=== PATIENT | male | born 1980 | race Caucasian/White ===

== ENCOUNTER 2022-05-05 01:47 | Inpatient (IN) | payer MEDICAID ==
[~2022-05-05] VITALS: Ht 177.8 cm; Wt 107.5 kg
[2022-05-05] VITALS (7 sets, daily range): BP systolic 0–118; BP diastolic 0–66
--- NOTE | 2022-05-05 01:47 | NUR ---
pt intubated 8.0 26 at the teeth with color change.
--- NOTE | 2022-05-05 01:47 | NUR ---
[place] pd at bedside
--- NOTE | 2022-05-05 01:47 | NUR ---
42 yo m biba from home with c/c of full arrest. per medics pd was on site attempting to arrest pt d/t warrant. pt was tazed 4-5 times and fought with pd. pt became unconcious, weak thready pulse, cpr was started. pt arrived with leoncio on chest. per medics no hx, rx and allergies
--- NOTE | 2022-05-05 01:47 | NUR ---
0145- PT BIBA ALS CPR IN PROGRESS. TAKEN TO BED 1. DR. ONEIL AND RT AT BEDSIDE. [place] AT BEDSIDE
--- NOTE | 2022-05-05 02:16 | NUR ---
X-Ray at bedside.
--- NOTE | 2022-05-05 02:29 | NUR ---
PT TAKEN TO CT
[2022-05-05 02:39] LABS: HEMATOCRIT 35.8 % (36-52); HEMOGLOBIN 11.6 g/dL (12.0-18.0); MEAN CORPUSCULAR HEMOGLOBIN 29 pg (27-31); MEAN CORPUSCULAR HGB CONC 32 g/dL (33-37); PLATELET COUNT (AUTO) 168 K/uL (140-450); RED BLOOD CELL COUNT(AUTO) 4.02 MIL/uL (4.20-6.10); RED CELL DISTRIBUTION WIDTH 13.8 % (11.6-13.7); WHITE BLOOD COUNT (AUTO) 7.4 K/uL (4.8-10.8)
[2022-05-05 02:43] LABS: PROTHROMBIN TIME 13.5 secs (10.8-13.4)
[2022-05-05 02:57] LABS: LYMPHOCYTES % (MANUAL) 69 % (20-46)
[2022-05-05 02:58] LABS: MONOCYTES % (MANUAL) 3 % (5-12)
[2022-05-05 03:09] LABS: ALBUMIN 3.2 g/dL (3.4-5.0); ANION GAP 30.3 (8-16); ASPARTATE AMINOTRANSFERASE 314 U/L (15-37); CHLORIDE 95 mmol/L (98-107); CREATININE 2.3 mg/dL (0.6-1.3); GFR ARICAN-AMERICAN 40 mL/min (>90); POTASSIUM 4.3 mmol/L (3.5-5.1); SODIUM SERUM 135 mmol/L (136-145); TOTAL BILIRUBIN 0.4 mg/dL (0.0-1.0); UREA NITROGEN, BLOOD 18 mg/dL (7-18)
[2022-05-05 03:14] LABS: GLUCOSE 417 mg/dL (74-106)
[2022-05-05] MEDS ORDERED: DOPamine 400 MG/D5W PREMIX 250 ML IV ONE ×4 (03:15→22:02)
[2022-05-05] MEDS ORDERED: NACL 0.9% 1,000 ML IV ONE ×2 (03:15→04:05)
[2022-05-05] MEDS ORDERED: NOREPINEPHRINE 4 MG in DEXTROSE 5% 250 ML IV ONE (03:15)
[2022-05-05 03:37] LABS: SALICYLATE 2.9 mg/dL (2.8-20.0)
[2022-05-05 03:43] LABS: ACETAMINOPHEN < 0.5 ug/ml (10-30)
--- NOTE | 2022-05-05 04:03 | NUR ---
BELONGINGS LIST DONE.
[2022-05-05] MEDS: NACL 0.9% 1,000 ML IV SCH ×3 (04:40→21:56)
--- NOTE | 2022-05-05 05:24 | NUR ---
[place] pd continues at bedside.
--- NOTE | 2022-05-05 05:25 | NUR ---
pt has been cleaned up, repositioned and all covers remain off.
[2022-05-05] MEDS ORDERED: NOREPINEPHRINE 4 MG/4 ML VIAL IV ONE ×5 (05:51→20:49)
[2022-05-05] MEDS ORDERED: PIPERACILLIN/TAZOBACTAM 3.375 GM in DEXTROSE 5% 50 ML IV SCH (06:00)
[2022-05-05] MEDS ORDERED: PIPERACILLIN/TAZOBACTAM 3.375 GM VIAL IV ONE ×2 (06:08→13:08)
--- NOTE | 2022-05-05 07:24 | NUR ---
REPORT GIVEN TO JABARI ANGUIANO. TRANSFER OF CARE AT THIS TIME.
--- NOTE | 2022-05-05 07:47 | NUR ---
RECEIVED ON A Stop Being WatchedSCAPE R860 VENTILATOR PLUGGED INTO RED OUTLET TOLERATING WELL WITHOUT ADVERSE REACTIONS NOTED TO AN ENDOTRACHEAL TUBE #8.0 SECURED AT 26cm TEETH/GUM LINE WITH AN ANCHOR FAST CUFF PRESSURE CHECKED NOTED AMBU BAG AT BEDSIDE RESTING COMFORTABLY NO DISTRESS NOTED GOOD CHEST RISE AND AERATION THROUGHOUT BILATERAL LUNG PANTOJA AIRWAY PATENT
--- NOTE | 2022-05-05 08:11 | NUR ---
Patient intubated on a vent., perrl, on hypothermia protocol, rectal T 95.7, ice pack applied at genitals and axillary area, ng tube in place, mitchell cath in place 350 cc urine, on levophed drip 14 mcg/min, dopamine at 10 mcg/kg/min, on ns at 125 cc/hour, on central line, no infiltration signs, ST on, 116, c collar in place.
--- NOTE | 2022-05-05 10:30 | NUR ---
no changes from previous assessment, hr 102, o2 sat 99% same vent settings, on levophed, dopamine same rate, sr up times 2
--- NOTE | 2022-05-05 11:45 | NUR ---
STABLE GOOD CHEST RISE NO DISTRESS NOTED AIRWAY PATENT
[2022-05-05] MEDS: PIPERACILLIN/TAZOBACTAM 3.375 GM in DEXTROSE 5% 50 ML IV SCH ×2 (13:07→21:57)
[2022-05-05 13:47] LABS: BARBITURATE, URINE NEGATIVE ng/ml (NEG <=200); BENZODIAZEPINE, URINE NEGATIVE ng/mL (NEG <=200); CANNABINOID, URINE NEGATIVE ng/mL (NEG <=50); COCAINE, URINE NEGATIVE ng/mL (NEG <=300); OPIATE, URINE NEGATIVE ng/mL (NEG <=2000); PHENCYCLIDINE SCREEN,URINE NEGATIVE ng/mL (NEG <=25)
--- NOTE | 2022-05-05 13:49 | NUR ---
no ac changes, on vent, same setting, no need for sedation, perrl, sr on cm, hr 97/min, o2 sat 100% 45% fio2, sr up times 2, pd at bs
--- NOTE | 2022-05-05 14:00 | NUR ---
NO EVIDENCE OF RESPIRATORY DISTRESS NOTED GOOD CHEST RISE AIRWAY PATENT
--- NOTE | 2022-05-05 19:29 | NUR ---
report to Jose Roberto restaurant shift supervisor nurse
--- NOTE | 2022-05-05 19:30 | NUR ---
received pt from day shift RN. pt currently a/o x 0 gcs 3. currently intubated >ETT 8 26cm to lip > OGT in place > R fem CVC triple lumen in place > 16fr mitchell in place vent settings as follows; PRVC 500 vt 22 r 3 PEEP 45%
--- NOTE | 2022-05-05 20:00 | NUR ---
remains on TTM at this time.
--- NOTE | 2022-05-05 20:38 | NUR ---
PATIENTS SATS DROPPED TO 85% INCREASED FIO2 TO 100%. WILL TITRATE NEEDED
--- NOTE | 2022-05-05 21:00 | NUR ---
called Dr. Kennedy to request for BP control pressors. TORB of vasopressin and thelma-synephrine PRN titration
[2022-05-05] MEDS ORDERED: PHENYLEPHRINE 40 MG in NACL 0.9% 250 ML IV PRN (21:55)
[2022-05-05] MEDS: NOREPINEPHRINE 8 MG in DEXTROSE 5% 250 ML IV PRN (22:17)
[2022-05-05] MEDS: DOPamine 400 MG/D5W PREMIX 250 ML IV PRN (22:18)
[2022-05-05] MEDS ORDERED: VASOPRESSIN 20 UNITS/ML VIAL ONE (23:16)
[2022-05-05] MEDS: VASOPRESSIN 20 UNITS in NACL 0.9% 250 ML IV PRN (23:26)
[2022-05-06] VITALS (16 sets, daily range): BP systolic 97–141; BP diastolic 65–91
[2022-05-06] MEDS: NOREPINEPHRINE 8 MG in DEXTROSE 5% 250 ML IV PRN ×3 (00:44→21:49)
--- NOTE | 2022-05-06 03:00 | NUR ---
pt now placed on cooling blanket for TTM.
[2022-05-06] MEDS ORDERED: NOREPINEPHRINE 4 MG/4 ML VIAL IV ONE ×2 (04:06→21:41)
[2022-05-06] MEDS: NACL 0.9% 1,000 ML IV SCH ×3 (04:44→20:26)
[2022-05-06 05:21] LABS: BASOPHILS % (AUTO) 0.3 % (0.0-2.0); EOSINOPHILS # (AUTO) 0.1 K/uL (0-0.4); EOSINOPHILS % (AUTO) 3.5 % (0.0-4.0); HEMATOCRIT 41.8 % (36-52); HEMOGLOBIN 13.9 g/dL (12.0-18.0); LYMPHOCYTES # (AUTO) 0.6 K/uL (2.0-11.5); LYMPHOCYTES % (AUTO) 24.2 % (20.5-51.1); MEAN CORPUSCULAR HEMOGLOBIN 29 pg (27-31); MEAN CORPUSCULAR HGB CONC 33 g/dL (33-37); MEAN CORPUSCULAR VOLUME 85.8 fL (80-94); MONOCYTES # (AUTO) 0.1 K/uL (0.8-1.0); MONOCYTES % (AUTO) 4.7 % (1.7-9.3); NEUTROPHILS # (AUTO) 1.8 K/uL (1.8-7.7); NEUTROPHILS % (AUTO) 67.3 % (42.2-75.2); PLATELET COUNT (AUTO) 153 K/uL (140-450); RED BLOOD CELL COUNT(AUTO) 4.87 MIL/uL (4.20-6.10); RED CELL DISTRIBUTION WIDTH 14.7 % (11.6-13.7); WHITE BLOOD COUNT (AUTO) 2.6 K/uL (4.8-10.8)
[2022-05-06] MEDS: PIPERACILLIN/TAZOBACTAM 3.375 GM in DEXTROSE 5% 50 ML IV SCH ×3 (05:49→20:17)
--- NOTE | 2022-05-06 05:52 | NUR ---
NAD at this time. pt remains ventilated at this time with no sedation. no neuro response at this time.
[2022-05-06] MEDS: DOPamine 400 MG/D5W PREMIX 250 ML IV PRN ×4 (06:21→23:06)
[2022-05-06 06:23] LABS: ANION GAP 17.6 (8-16); CARBON DIOXIDE 19.1 mmol/L (21-32); CREATININE 3.1 mg/dL (0.6-1.3); POTASSIUM 3.7 mmol/L (3.5-5.1)
--- NOTE | 2022-05-06 06:29 | NUR ---
remains on TTM at this time. levo remains to be titrated down.
--- NOTE | 2022-05-06 07:26 | NUR ---
REPORT RECEIVED FROM JESI BARBOZA, TRANSFER OF CARE AT THIS TIME. RECEIVED PT IN BED, NO NEURO RESPONSE NOTED
--- NOTE | 2022-05-06 08:40 | NUR ---
Patient will be admitted to care of DR BARRETT. Admited to ICU. Will go to room ICU3. Belongings list completed. Report to KOBE BARBOZA.
--- NOTE | 2022-05-06 08:40 | NUR ---
Alireza smyth in [facility] - 05/06/22 at 0906 by ELLIS Pt report given to KOBE BARBOZA. Transfer of care at this time.
--- NOTE | 2022-05-06 09:05 | NUR ---
PT TRANSFERRED FROM ER TO ICU VIA [place], RECEIVED BEDSIDE REPORT FROM GUILLERMO. ON MONITOR. LETHARGIC. ETT TO VENT, AC VC FIO2 45%, VT 500, RATE 22, PEEP 5. NPO, OGT IN PLACE AND CLAMPED. RT FEMORAL, RUNNING DOPAMINE @ 10 MCG/KG/MIN, LEVOPHED @3 MCG/MIN, VASOPRESSIN @ 0.03 IU/MIN, NS @ 125MLS/HR. PERIPHERAL IV TO LT WRIST 20G, SALINE LOCKED. HILLMAN IN PLACE, SKIN INTACT. TEMP WILL BE MONITORED. BED TO LOWEST POSITION, HOB ELEVATED, CALL LIGHT WITHIN REACH, WILL CONTINUE TO MONITOR.
[2022-05-06] MEDS: VASOPRESSIN 20 UNITS in NACL 0.9% 250 ML IV PRN (10:13)
--- NOTE | 2022-05-06 10:19 | NUR ---
PATIENT HAS BEEN SCREENED AND CATEGORIZED HIGH NUTRITION RISK. PATIENT WILL BE SEEN WITHIN 1-2 DAYS OF ADMISSION. REVIEWED BY ANA HUGO RD
--- NOTE | 2022-05-06 10:37 | NUR ---
DR FRANCESCA LAINEZ AT BEDSIDE. UPDATED PT INFORMATION. ORDERED ABGS AND CONTACT [facility]. Addendum: 05/06/22 at 1809 by Yonas Graff RN PER LUIS MANUEL, NEED OFFICIAL EEG RESULT AND TWO PHYSICIAN BEFORE CONTACTING [facility]. DR LYON WILL READ THE EEG ON 05/07/22.
--- NOTE | 2022-05-06 11:36 | NUR ---
DR ARNOLD LAINEZ AT BEDSIDE. UPDATED PT INFORMATION
--- NOTE | 2022-05-06 11:40 | NUR ---
CALLED DR. RICHELLE ARIAS AT [facility] AT TO REVIEW ABG RESULTS; DENTON/EXCHANGE TO PAGE FORMAMBER JACK; PATIENT INFORMATION AND CALL BACK NUMBER GIVEN
--- NOTE | 2022-05-06 11:42 | NUR ---
CALL BACK FROM GAURAV MCKEON; REVIEWED ABG RESULTS; STATES "THANKS OK METABOLIC ISSUE" NO FURTHER RESPIRATORY ORDERS GIVEN
--- NOTE | 2022-05-06 12:07 | NUR ---
PT MOM/DEBBIE ENRIQUEZ, CELL# AT BEDSIDE. UPDATED PT INFORMATION.
--- NOTE | 2022-05-06 12:50 | NUR ---
BEDSIDE EEG STARTED.
--- NOTE | 2022-05-06 13:09 | NUR ---
DR LYON ROUNDING TORIN BEDSIDE. UPDATED PT INFORMATION. ALL QUESTION ANSWERED.
--- NOTE | 2022-05-06 14:16 | NUR ---
PT. WITH LOW GHAZAL SCALE AT MODERATE TO HIGH RISK, CONTINUE TO FOLLOW PRESSURE INJURY PREVENTION INTERVENTIONS. [place] [employer] AT BED SIDE, EEG AT BEDSIDE. -POSITIONING: TURN AND REPOSITION PATIENT Q 2H OR SOONER USE PILLOWS TO KEEP BONY PROMINENCES FROM DIRECT CONTACT WITH SURFACES USE REPOSITIONING WEDGES TO PROVIDE 30-DEGREE ANGLE FOR SIDE LYING POSITIONS OFFLOADING OR FOAM DRESSING TO ALL TUBING TO PREVENT MEDICAL DEVICES RELATED PRESSURE INJURY -RE-EVALUATING AND MANAGING INCONTINENCE MONITOR SKIN CONDITION DURING POSITION CHANGE DO NOT MASSAGE REDNESS, BONY PROMINENCES FREQUENT DIONY-CARE AND PROVIDE BARRIER CREAMS PRN IF SOILING MOISTURE CONTROL BY OFFER BED MOY/URINAL /ABSORBENT PAD TO WICK AND HOLD MOISTURE KEEP SKIN DRY AND PROTECT FROM FRICTION -MANAGE FRICTION/SHEAR/MOBILITY KEEP HOB AT THE LOWEST LEVEL OF ELEVATION NO MORE THAN 30 DEGREE UNLESS OTHERWISE CONTRAINDICATED USE LIFT SHEET OR TRANSFER DEVICE TO MOVE PATIENT AND PREVENT LATERAL SHEER. PROTECT HEELS, ELBOWS BONY PROMINENCES WITH SKIN BERRIES OR FOAM DRESSING IF EXPOSED TO FRICTION OFFLOAD BILATERAL HEELS BY PLACING PILLOWS UNDER CALVES AT ALL TIMES, UNLESS OTHERWISE CONTRAINDICATED -PRESSURE REDISTRIBUTION SURFACE THERAPY MARTY ISOFLEX MATTRESS -NUTRITION: PLEASE FOLLOW RD RECOMMENDATIONS AND OFFER NUTRITION SUPPLEMENTS IF ORDERED. PLEASE CONTACT WOUND CARE NURSE FOR ANY QUESTION AND CHANGE OF WOUND CONDITION.
[2022-05-06 14:54] LABS: APPEARANCE,URINE CLEAR (CLEAR); BILIRUBIN,URINE NEGATIVE (NEGATIVE); BLOOD, URINE 3+ (NEGATIVE); COLOR,URINE YELLOW (YELLOW); LEUKOCYTE ESTERASE ,URINE NEGATIVE (NEGATIVE); NITRITE, URINE NEGATIVE (NEGATIVE); PH,URINE 5.5 (5.0-9.0); UGLUCOSE NEGATIVE (NEGATIVE)
[2022-05-06 15:22] LABS: BARBITURATE, URINE NEGATIVE ng/ml (NEG <=200); BENZODIAZEPINE, URINE NEGATIVE ng/mL (NEG <=200); CANNABINOID, URINE NEGATIVE ng/mL (NEG <=50); COCAINE, URINE NEGATIVE ng/mL (NEG <=300); OPIATE, URINE NEGATIVE ng/mL (NEG <=2000); PHENCYCLIDINE SCREEN,URINE NEGATIVE ng/mL (NEG <=25)
--- NOTE | 2022-05-06 16:29 | NUR ---
05/06/22 RD INITIAL ASSESSMENT COMPLETED PLEASE REFER TO NUTRITION ASSESSMENT UNDER CARE ACTIVITY FOR ESTIMATED NUTRITIONAL NEEDS. 1. CONTINUE NPO PER MD 2. WHEN/IF MEDICALLY APPROPRIATE TO START TF, RECOMMEND VITAL AF 1.2 AT GOAL RATE 65 ML/HR, FWF 150 ML Q6H TOLERATED - PROVIDES 1560 ML TOTAL VOLUME, 1872 KCAL, 117 GM PROTEIN AND 1865 ML FREE WATER DAILY MEETING 100% ESTIMATED KCAL AND PROTEIN NEEDS; ADEQUATE - START TF AT 1O ML/HR INCREASE BY 1O ML Q4H UNTIL GOAL IS REACHED TOLERATED 3. MONITOR GI SYMPTOMS, GASTRIC RESIDUALS AND NUTRITION RELATED LAB VALUES 4. CONSULT RD PRN 5. RD TO FOLLOW-UP 2-3 DAYS, HIGH RISK REVIEWED BY ANA HUGO RD Addendum: 05/09/22 at [address] PT WAS PRONOUNCED AT 5:32PM ON 05/08/22 PER PROGRESS NOTE WILL DISCONTINUE NUTRITION ASSESSMENTS AND FOLLOW UPS
[2022-05-06 19:20] LABS: RBC,URINE 11-20 (MOD) /HPF (0-5); WBC,URINE 0-5 /HPF (0-5)
--- NOTE | 2022-05-06 19:29 | NUR ---
ENDORSED TO CLAUDINE GARCIA RN FOR CONTINUITY OF CARE. ALL QUESTION ANSWERED.
[2022-05-06] MEDS ORDERED: VASOPRESSIN 20 UNITS/ML VIAL ONE (19:58)
--- NOTE | 2022-05-06 21:00 | NUR ---
ASSESSMENT COMPLETED PT NON VERBAL NON RESPONSIVE WILL CONTINUE TO MONITOR AND ASSESS
[2022-05-07] VITALS (28 sets, daily range): BP systolic 90–135; BP diastolic 46–85
[2022-05-07] MEDS: DOPamine 400 MG/D5W PREMIX 250 ML IV PRN ×6 (00:54→23:31)
[2022-05-07] MEDS: PIPERACILLIN/TAZOBACTAM 3.375 GM in DEXTROSE 5% 50 ML IV SCH ×3 (05:12→21:34)
[2022-05-07] MEDS: NACL 0.9% 1,000 ML IV SCH ×3 (05:13→21:24)
[2022-05-07 05:24] LABS: BASOPHILS % (AUTO) 0.3 % (0.0-2.0); EOSINOPHILS % (AUTO) 0.9 % (0.0-4.0); HEMOGLOBIN 12.9 g/dL (12.0-18.0); LYMPHOCYTES # (AUTO) 0.4 K/uL (2.0-11.5); LYMPHOCYTES % (AUTO) 11.3 % (20.5-51.1); MEAN CORPUSCULAR HEMOGLOBIN 29 pg (27-31); MEAN CORPUSCULAR HGB CONC 34 g/dL (33-37); MONOCYTES # (AUTO) 0.2 K/uL (0.8-1.0); MONOCYTES % (AUTO) 5.2 % (1.7-9.3); NEUTROPHILS # (AUTO) 2.8 K/uL (1.8-7.7); NEUTROPHILS % (AUTO) 82.3 % (42.2-75.2); PLATELET COUNT (AUTO) 87 K/uL (140-450); RED BLOOD CELL COUNT(AUTO) 4.47 MIL/uL (4.20-6.10); RED CELL DISTRIBUTION WIDTH 14.6 % (11.6-13.7); WHITE BLOOD COUNT (AUTO) 3.4 K/uL (4.8-10.8)
[2022-05-07 06:40] LABS: ANION GAP 14.4 (8-16); CARBON DIOXIDE 21.3 mmol/L (21-32); CREATININE 2.1 mg/dL (0.6-1.3); POTASSIUM 4.7 mmol/L (3.5-5.1)
--- NOTE | 2022-05-07 07:00 | NUR ---
Received report from JABARI Heaton. Pt resting in bed. Pupils fixed and dilated at 8mm. Passive ROM. No response to painful stimuli. Lungs clear upper lobes and diminished lower lobes. ETT to vent; AC VC 500, 22, 5, 40%. Currently saturating at 100%. S1 and S2 auscultated, ST on monitor, Pulses +1 BUE, +3 non-pitting edema noted to right upper extremity, +2 non-pitting edema to left arm. Arms elevated with pillows. Pulses +2 BLE, Cap refill <3 sec. Currently running Dopamine at 8 mcg/kg/min, Levophed 3mcg/min, Vasopressin at 0.03 units/min, NS at 125ml/hr, infusing through R femoral cental line. Infusing without issue. R femoral central line appears WNL at site and leg, dressing is CDI. Right IJ in place saline locked. Bowel sounds hypoactive, abd is soft round. F/C in place draining clear yellow urine. Will continue to monitor.
--- NOTE | 2022-05-07 07:35 | NUR ---
RECEIVED INTUBATED PT WITH A 8.0 ETT SECURED @26 TEETH/GUM ON VENTILATOR. VENT SETTINGS: AC 22, VT 500, PEEP 5 AND FIO2 40%. PT SUCTIONED OBTAINED SMALL AMOUNT OF THICK SECRETIONS, PT HAS NO ACTIVE GAG REFLEX WHEN SUCTIONED NURSE AWARE. VENT IS PLUGGED INTO A RED OUTLET WITH ALARMS ON AND FUNCTIONING. WILL CONTINUE TO MONITOR.
--- NOTE | 2022-05-07 08:55 | NUR ---
DR LYON CALLED FOR UPDATE. DISCUSSED PT PLAN OF CARE. DR LYON WANTS UPDATE REGARDING [facility]. WILL CALL [facility].
--- NOTE | 2022-05-07 09:10 | NUR ---
Dr. Goodwin here to see patient new orders given. orders noted and carried out. See orders for detail. Addendum: 05/07/22 at 1240 by SUNNY PAINTING RN Dr. Goodwin requested that [facility] be contacted based on Pt condition, his assessment, and Dr. Churchill's Assessment.
--- NOTE | 2022-05-07 09:18 | NUR ---
ABG RESULTS GIVEN TO NO NEW ORDERS AT THIS TIME.
--- NOTE | 2022-05-07 10:01 | NUR ---
Spoke with Ty from [facility]. Confirmation #[id number].
--- NOTE | 2022-05-07 11:17 | NUR ---
Dr. Kennedy here to see pt. Dr. Kennedy spoke with pt's brother Richard concerning pt's condition after no return phone calls from pt's mother. All questions answered by . Pt's brother to attempt to contact pt's mother again.
--- NOTE | 2022-05-07 12:43 | NUR ---
Spoke with Richard and Ismael (brothers of pt) who stated they were still unable to contact their mother.
--- NOTE | 2022-05-07 14:50 | NUR ---
DR BARRETT AT BEDSIDE, UPDATING MOTHER OF PT AND OTHER FAMILY AT BEDSIDE, OF PT CONDITION. DR BARRETT ALSO CALLED DR LYON, WHO SPOKE WITH THE MOTHER REGARDING PT CURRENT CONDITION. AFTER DISCUSSION, DR BARRETT WILL ENTER ORDER FOR CEREBRAL BLOOD FLOW STUDY. ALL QUESTIONS ANSWERED AT THIS TIME.
--- NOTE | 2022-05-07 15:00 | NUR ---
DC PLANNING MET WITH PTS FAMILY (MOTHER, CHRISTINA(BROTHER) AND COUSIN) AT BEDSIDE TO PROVIDE FAMILY WITH SUPPORT. ACTIVELY LISTED TO FAMILY, THEY PROCESSED UPDATE JUST REPORTED TO THEM BY TREATING PHYSICIANS. PROVIDED FAMILY WITH CONTACT INFO IN THE EVENT FAMILY REQUIRED ADDITIONAL SUPPORT. PTS COUSIN INQUIRED ON CLINICAL CLARIFICATION AND WAS DIRECTED TO SPEAK WITH PTS NURSE AND OR PHYSICIANS, QUESTIONS BEING ASKED, WERE OUT OF SCOPE OF PRACTICE. FAMILY APPEARS TO BE GRIEVING APPROPRIATELY AND FAMILY APPEARS TO HAVE ADEQUATE SUPPORT SYSTEM. SW INQUIRED ON ADDITIONAL RESOURCES NEEDED AT THIS TIME, FAMILY DECLINED AT THIS TIME.
--- NOTE | 2022-05-07 15:35 | NUR ---
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 PATIENT HAS A HISTORY OF ALCOHOL AND METH USE . INTUBATED SEDATED FIO2 28%. ADMINISTERED IVF, IV ABX ZOSYN ON LEVOPHED, VASOPRESSIN AND DOPAMINE DRIP. EEG SHOWED BRAIN . CONSULTED WITH PULMO, CARDIO AND NEUROLOGIST. CM TO FOLLOW Addendum: 05/08/22 at 1611 by Carisa Guevara RN DC PLANNING: NUVIA AND CHRIS FROM [facility] MET PT'S BROTHER CHRISTINA, DISCUSSED THE ISSUES AND CONCERN REGARDING THE CARE AND PLAN CHRISTINA STATED MISUNDERSTANDING FOR THE NURSES NOT GIVING HIM ENOUGH INFORMATION. CM EXPLAIN THE PROTOCOL AND PROCEDURE . NM BRAIN SCAN DONE AWAITING FOR THE RESULT. DR OBRIEN CALLED PT'S BROTHER EXPLAINED PT'S CONDITION. CM TO FOLLOW Addendum: 05/10/22 at 1454 by Carisa Guevara RN LATE ENTRY: 05/09/22 1600 PT'S FAMILY MEMBER MOTHER (DEBBIE) AND BROTHER (CHRISTINA) AND DORIS PEDERSEN WAS DISCUSSING THE ISSUES AND CONCERN AND PLAN FOR SUPPORTIVE CARE. [facility] CONTACTED THE FAMILY AT THIS TIME. CM TO FOLLOW Addendum: 05/10/22 at 1458 by Carisa Guevara RN DC PLANNING: RECEIVED A CALL FROM PT'S BROTHER CHRISTINA REQUESTING HIS BROTHER TO BE TRANSFERRED TO HIGHER LEVEL OF CARE. NUVIA EXPLAINED THE RULES AND PROTOCOL FOR TRANSFERRING PATIENT. NUVIA NOTIFIED MD AND MD ORDERED FAMILY REQUEST. NUVIA FAXED TO [facility], [facility] [place], [facility] [place] [facility], AND [facility]. CM TO FOLLOW Addendum: 05/10/22 at 1534 by Carisa Guevara RN DC PLANNING: RECEIVED A CALL FROM [facility] STATED THEY ONLY REVIEW HIGHER LEVEL OF CARE NOT FAMILY REQUEST BECAUSE OF THAT DECLINED THE CASE. CM TO FOLLOW Addendum: 05/13/22 at 1654 by Carisa Guevara RN DC PLANNING: RECEIVED A CALL FROM PT'S COUSIN REQUESTING FOR A FLOORMAN, CM PROVIDE THE LIST OF RECLAMATION ENGINEER AROUND THE AREA AND SUGGESTED TO BRING THEY CAN BRING THEIR OWN. PATIENT IS STILL ON DOPAMINE AND VASOPRESSIN DRIPS AND REMAIN INTUBATED. DEBBIE PT'S MOTHER CALLED CHRIS OUR COMMUNITY SERVICE REPRESENTATIVE STATED MOTHER REQUESTING 2 MORE DAYS OF VENTILATORY SUPPORT. PLAN TO EXTUBATE AFTER 2 DAYS. CM TO FOLLOW Addendum: 05/15/22 at 1732 by Carisa Guevara RN DC PLANNING: CM SPOKE WITH PATIENT'S MOTHER DISCUSSED THE PLAN FOR EXTUBATION PER MOTHER IF THE 2 CHILDREN ARE OK SHE IS OK WITH IT. CM CALLED CHRISTINA AND LULU STATED LONG MOTHER IS COMFORTABLE THEY AGREED WITH TERMINAL EXTUBATION. NUVIA MANZANARES (CM DIRECTOR) CLAUDIA (CNO ) MET MOTHER AND 4 OTHER FAMILY MEMBER AND MOTHER AGREED WITH TERMINAL EXTUBATION AND SHE PROVIDE THE MORTUARY NAME AND ADDRESS. NUVIA NOTIFIED DR BROWN THE ATTENDING AND DR BROWN ORDERED RT REQUEST FOR EXTUBATION. NUVIA NOTIFIED ICU CHARGE NURSE LISANDRA.
--- NOTE | 2022-05-07 16:19 | NUR ---
PT IS 42 YR OLD MALE ADMITTED TO [facility] FROM HOME WITH DX CARDIAC ARREST. PTS FAMILY HAS BEEN SPOKEN TO BY ATTENDING PHYSICIANS ON PT'S PROGNOSIS. PT CURRENTLY HAS A BRAIN FLOW STUDY PENDING. MET WITH PTS FAMILY (MOTHER, CHRISTINA(BROTHER) AND COUSIN) AT BEDSIDE TO PROVIDE FAMILY WITH SUPPORT. ACTIVELY LISTED TO FAMILY, THEY PROCESSED UPDATE JUST REPORTED TO THEM BY TREATING PHYSICIANS. PROVIDED FAMILY WITH CONTACT INFO IN THE EVENT FAMILY REQUIRED ADDITIONAL SUPPORT. PTS COUSIN INQUIRED ON CLINICAL CLARIFICATION AND WAS DIRECTED TO SPEAK WITH PTS NURSE AND OR PHYSICIANS, QUESTIONS BEING ASKED, WERE OUT OF SCOPE OF PRACTICE. FAMILY APPEARS TO BE GRIEVING APPROPRIATELY AND FAMILY APPEARS TO HAVE ADEQUATE SUPPORT SYSTEM. SW INQUIRED ON ADDITIONAL RESOURCES NEEDED AT THIS TIME, FAMILY DECLINED AT THIS TIME. Addendum: 05/07/22 at 1620 by Holli Delcid SS Amended: Links added.
--- NOTE | 2022-05-07 19:11 | NUR ---
SBAR REPORT GIVEN TO GALINA BARBOZA, ALL CARES ENDORSED.
--- NOTE | 2022-05-07 19:30 | NUR ---
RECEIVED PT. FROM DAY SHIFT JABARI PIERRE. ASSESSED PT AND NOTED NO RESPONSE, NO MOVEMENT. PUPILS FIXED AND DILATED. ETT TO VENT A/C VC RATE 22, FIO2 28%, TV 500, PEEP 5 AND 02 SAT 97%. PT. NO GAG REFLEX. BILATERAL LUNGS DIMINISHED. ABDOMEN SOFT AND NON TENDER. NO ABDOMINAL BOWEL SOUNDS.NPO ORDERED. SINUS TACHYCARDIA HR 108 ON THE MONITOR. IV TO LEFT FEMORAL TRIPLE LUMEN CENTRAL CATHETER PATENT AND INTACT. NO S/S OF INFILTRATION, NO S/S OF INFECTION.INFUSING LEVOPHED DRIP 3MCG/MIN, DOPAMINE 5MG/KG/MIN,VASOPRESSIN 0.03 U/MIN, NS AT 125 ML/HR. IV TO RIGHT JUGULAR PERIPHERAL LINE 18G AND LEFT HAND 20G CAPPED AND FLUSHED.REPOSITIONED AND PLACED IN COMFORTABLE POSITION. SKIN INTACT. HILLMAN CATHETER TO GRAVITY. URINE COLOR YELLOW CLOUDY WITH SEDIMENTS. PROVIDED SAFE AND QUIET ENVIRONMENT. NO S/S OF PAIN. SCHEDULE FOR CEREBRAL BLOOD FLOW STUDY TOMORROW AT 10AM. NEEDS CONSENT. PER DAY SHIFT FAMILY CAME IN THEIR SHIFT AND WILL BE COMING TONIGHT. WILL WAIT FOR THE FAMILY TO SIGN THE CONSENT. WILL CONT. TO MONITOR.
--- NOTE | 2022-05-07 20:26 | NUR ---
PT. FAMILY (MOM,BROTHER AND AUNT) AT THE BEDSIDE. CHRISTINA (BROTHER) STATED THEY DON'T WANT TO TALK TO THE NURSE. THEY WANT TO TALK TO THE PRIMARY DOCTOR. I TOLD THE BROTHER THAT THE DOCTOR USUALLY DO ROUNDS IN THE MORNING, BUT THEY CAN COME OR WE CAN CALL THEM IF THEY WANT TO TALK TO THE DOCTOR. CHRISTINA STATED " I WANT TO TALK TO THE PRIMARY DOCTOR PERSONALLY". I ASKED IF HE WANTS TO TALK TO THE DOCTOR. CHRISTINA STATED THAT HE CAN WAIT FOR TOMORROW, BECAUSE HE WILL BE HERE IN THE HOSPITAL TOMORROW. I ASKED HIM ALSO, IF THEY CAN SIGN THE CONSENT FOR CEREBRAL BLOOD FLOW PER ORDERED, SCHEDULE FOR TOMORROW AT 10AM. CHRISTINA READ THE CONSENT AND HE STATED TO ME THAT HE EXPLAINED IT TO MOM AND THEY WILL SIGNED THE CONSENT TOMORROW. PER CHRISTINA, THEY NEVER DECIDED ANYTHING YET. CHRISTINA SAID THAT THE DOCTOR TALKED TO THE MOM THIS MORNING AND SHE HASN'T DECIDE SO EVERYTHING WILL BE CONTINUED. HE STATED HE WANTS TO TALK TO THE DOCTOR TOMORROW BEFORE THE PROCEDURE. HE LEFT HIS CELLPHONE NUMBER (CHRISTINA JOSEPH ([phone]). WILL ENDORSE TO THE NEXT SHIFT.
--- NOTE | 2022-05-07 20:33 | NUR ---
PT. GIRLFRIEND WALI CALLED. I MENTIONED TO HER THAT I CAN'T GIVE INFORMATION OVER THE PHONE SINCE SHE IS NOT ON THE LIST, BUT SHE CAN COME TO VISIT. I TOLD HER OUR VISITING HOURS HERE IN ICU. SHE STATED IT'S OKAY, SHE WILL JUST VISIT TOMORROW.WILL ENDORSE TO THE NEXT SHIFT.
[2022-05-08] VITALS (27 sets, daily range): BP systolic 92–132; BP diastolic 52–88
--- NOTE | 2022-05-08 00:13 | NUR ---
COOKIE FROM [facility] CALLED AND ASKED FOR AN UPDATE WITH PT. CONDITION. HE ASKED IF FAMILY DECIDED AND I STATED THAT THEY WERE HERE EARLIER DURING MY SHIFT AND STILL WANTS EVERYTHING TO BE DONE (FULL CODE) AND TOMORROW WILL HAVE A PROCEDURE FOR CEREBRAL BLOOD FLOW. COOKIE ASKED FOR V/S, LABS, ABG. ASKED IF THERE ARE NEW RESULTS ASIDE FROM THIS MORNING LABS AND ABG AND I STATED NO NEW ONE. COOKIE STATED IF THERE ARE CHANGES TO FAMILY DECISION, TO LET [facility] KNOW. WILL ENDORSE TO THE NEXT SHIFT.
[2022-05-08] MEDS: NACL 0.9% 1,000 ML IV SCH ×3 (05:00→20:40)
[2022-05-08] MEDS: PIPERACILLIN/TAZOBACTAM 3.375 GM in DEXTROSE 5% 50 ML IV SCH ×3 (05:00→21:56)
[2022-05-08 05:32] LABS: BASOPHILS % (AUTO) 0.3 % (0.0-2.0); EOSINOPHILS % (AUTO) 0.9 % (0.0-4.0); HEMATOCRIT 35.3 % (36-52); HEMOGLOBIN 11.8 g/dL (12.0-18.0); LYMPHOCYTES # (AUTO) 0.5 K/uL (2.0-11.5); LYMPHOCYTES % (AUTO) 14.3 % (20.5-51.1); MEAN CORPUSCULAR HEMOGLOBIN 29 pg (27-31); MEAN CORPUSCULAR HGB CONC 34 g/dL (33-37); MEAN CORPUSCULAR VOLUME 85.9 fL (80-94); MONOCYTES # (AUTO) 0.2 K/uL (0.8-1.0); MONOCYTES % (AUTO) 4.6 % (1.7-9.3); NEUTROPHILS # (AUTO) 2.8 K/uL (1.8-7.7); NEUTROPHILS % (AUTO) 79.9 % (42.2-75.2); PLATELET COUNT (AUTO) 64 K/uL (140-450); RED BLOOD CELL COUNT(AUTO) 4.11 MIL/uL (4.20-6.10); RED CELL DISTRIBUTION WIDTH 14.8 % (11.6-13.7); WHITE BLOOD COUNT (AUTO) 3.5 K/uL (4.8-10.8)
[2022-05-08 06:15] LABS: ANION GAP 12.3 (8-16); CARBON DIOXIDE 23.6 mmol/L (21-32); CREATININE 1.9 mg/dL (0.6-1.3); POTASSIUM 3.9 mmol/L (3.5-5.1)
--- NOTE | 2022-05-08 07:27 | NUR ---
REPORT GIVEN TO DAY SHIFT JABARI PIERRE FOR CONTINUITY OF CARE.
--- NOTE | 2022-05-08 07:40 | NUR ---
SBAR REPORT RECEIVED FROM GALINA BARBOZA, ALL CARES ASSUMED. PT INTUBATED, VENT SETTINGS: 22, 500, 28%, 5. LEVOPHED AT 3MCG/MIN; DOPAMINE AT 8 MCG/KG/MIN; VASOPRESSIN AT 0.03UNIT/MIN; NS AT 125ML/HR. ALL IV FLUID INFUSING TO RIGHT FEMORAL TRIPLE LUMEN CATHETER. HILLMAN CATHETER DRAINING TO GRAVITY YELLOW URINE WITH SEDIMENT. OGT CLAMPLED. BED IN LOW AND LOCKED POSITION.
--- NOTE | 2022-05-08 09:37 | NUR ---
RECEIVED ON A 2345.comSCAPE R860 VENTILATOR PLUGGED INTO RED OUTLET TOLERATING WELL WITHOUT ADVERSE REACTIONS NOTED TO AN ENDOTRACHEAL TUBE #8.0 SECURED AT 26cm TEETH/GUM LINE WITH AN ANCHOR FAST CUFF PRESSURE CHECKED NOTED AMBU BAG AT BEDSIDE LOC NON REACTIVE GOOD CHEST RISE ENDOTRACHEAL SUCTION FOR SMALL THIN HAZY BLOOD TINGE SECRETIONS AIRWAY PATENT
--- NOTE | 2022-05-08 10:00 | NUR ---
TRANSFERRED PT TO NUCLEAR MEDICINE VIA MECHANICAL VENTILATION. SATURATION 100%. BLOOD PRESSURE STABLE. BAGGED PT BACK WITH 100% FIO2. AND PLACED BACK ON FULL VENT SUPPORT. NO COMPLICATIONS. VENT PLUGGED INTO RED OUTLET, WHEELS ARE LOCKED, AMBUBAG AT BEDSIDE, ALARMS ARE SET AND AUDIBLE.
--- NOTE | 2022-05-08 10:44 | NUR ---
AT APPROXIMATELY 0945, THIS RN, ACCOMPANIED BY KWAME GIRON AND ANDIE RN, TOOK PT TO RADIOLOGY FOR CEREBRAL BLOOD FLOW STUDY. PT REMAINED ON SAFETY COMPANION FOR DURATION OF TIME OFF UNIT, VITAL SIGNS WERE STABLE THROUGHOUT TRANSPORT AND DURING THE SCAN. PT BACK TO ICU BED 3. VITAL SIGNS STABLE.
--- NOTE | 2022-05-08 10:50 | NUR ---
BROTHER OF PT, CHRISTINA, AT BEDSIDE. BROTHER REQUESTS NEUROLOGIST TO COME TO SPEAK TO HIM IN PERSON. BROTHER STATES "MY MOM GAVE ME AN AUTHORATIVE SIGNATURE AND I NEED TO SPEAK WITH THE DOCTOR". THIS RN ASKED WHAT THAT MEANT AND BROTHER STATED " I WILL JUST TALK TO THE DOCTOR WHEN HE GETS HERE".
--- NOTE | 2022-05-08 11:02 | NUR ---
PT TEMP 91.0, PLACED ON MARLO HUGGER WARMING BLANKET. BROTHER AT BEDSIDE.
--- NOTE | 2022-05-08 13:30 | NUR ---
PT PLATELET COUNT IS 64. CONTACTED DR OBRIEN AND GAVE TELEPHONE ORDERS TO HOLD 1300 DOSE OF HEPARIN.
[2022-05-08] MEDS: DOPamine 400 MG/D5W PREMIX 250 ML IV PRN (14:01)
[2022-05-08] MEDS: VASOPRESSIN 40 UNITS in NACL 0.9% 250 ML IV SCH ×2 (14:05→18:13)
--- NOTE | 2022-05-08 14:25 | NUR ---
DR. RICHELLE ARIAS AT BEDSIDE VOR: APNEA TEST FOR DETERMINATION OF BRAIN
--- NOTE | 2022-05-08 16:30 | NUR ---
APNEA TEST AT BEDSIDE WITH RT ANDIE AND RT DIANE. PT REMAINS ON 2L O2 VIA ETT. PT VITAL SIGNS REMAINED STABLE DURING APNEA TEST. PT BACK ON VENT, SETTINGS REMAIN THE SAME. VSS.
--- NOTE | 2022-05-08 16:35 | NUR ---
CALLED DR. RICHELLE ARIAS AT [facility] TO REVIEW APNEA TEST ABG RESULTS; JERO/EXCHANGE TO PAGE FOREMENTIONED; PATIENT INFORMATION AND CALL BACK NUMBER GIVEN
--- NOTE | 2022-05-08 16:37 | NUR ---
CALL BACK FROM DR. RICHELLE ARIAS; REVIEWED ABG CO2 RESULTS ONLY #1 43.3 mmHg; #2 95.8 mmHg Addendum: 05/09/22 at 1015 by Peter Thomson RT REVIEWED ABG ENTRY TIME: ABG #1 7970; ABG #2 7169
--- NOTE | 2022-05-08 17:15 | NUR ---
TEXT PHONE NUMBER OF SERGEANT DE LEÓN [phone] AND THE REPORT TO DR. OBRIEN.
--- NOTE | 2022-05-08 17:30 | NUR ---
MACHINE PRINTER CALLED TO BEDSIDE BY GABBY/RN; PATIENT PRESENTING WITH DECLINING SATURATION TO 84%; INCREASED FIO2 TO 60%
--- NOTE | 2022-05-08 17:32 | NUR ---
SATURATION 94% ON FIO2 OF 60%
--- NOTE | 2022-05-08 17:35 | NUR ---
DR LYON AT BEDSIDE WITH MOTHER. INFORMED MOTHER THAT PATIENT IS BRAIN . DR LYON DECLARED THE PT BRAIN AT 1732.
--- NOTE | 2022-05-08 17:45 | NUR ---
DR LYON IN ICU TO DISCUSS PT WITH MOTHER. DR LYON ALSO ON THE PHONE WITH BROTHER OF PT, CHRISTINA. BROTHER ASKED TO SPEAK WITH THIS RN. BROTHER STATED " WHAT IS GOING ON TODAY I DIDN'T CONSENT TO ANY OF THIS" THIS RN ASKED BROTHER WHAT HE MEANT, BROTHER STATED " THEY SAID THE CYLINDER MACHINE OPERATOR IS INVOLVED" THIS RN INFORMED BROTHER THAT CYLINDER MACHINE OPERATOR HAS NOT BEEN CALLED SINCE THE PT HAD NOT BEEN DECLARED BRAIN UNTIL 1731. BROTHER INFORMED THIS RN THAT HE WAS GOING TO COME IN TO THE HOSPITAL.
--- NOTE | 2022-05-08 19:30 | NUR ---
SBAR REPORT GIVEN TO GALINA BARBOZA, ALL CARES ENDORSED.
--- NOTE | 2022-05-08 19:40 | NUR ---
RECEIVED REPORT FROM JABARI ACHARYA. PT. ON ETT TO VENT A/C PRVC RATE 22, FIO2 60%, TV 500, PEEP 5 AND 02 SAT 98%.PER REPORT, DOCTORS TALKED TO THE FAMILY THAT PT. IS BRAIN . ASSESSMENT DONE AND PT. NO MOVEMENTS, PUPILS FIXED AND DILATED, NO GAG REFLEX, BILATERAL LUNGS DIMINISHED, ABDOMINAL SOUND HYPOACTIVE. PT. HAS A RIGHT FEMORAL TRIPLE LUMEN CENTRAL CATHETER INFUSING LEVOPHED DRIP 3MCG/MIN, DOPAMINE DRIP 5 MCG/KG/MIN, VASOPRESSIN 0.03 U/MIN. IV TO RIGHT JUGULAR PERIPHERAL LINE 18G AND LEFT HAND 20G CAPPED AND FLUSHED. SINUS TACHYCARDIA ON THE MONITOR HR 118. OGT CLAMPED/NPO. SKIN INTACT. HILLMAN CATHETER URINE YELLOW CLOUDY WITH SEDIMENTS COLOR. PROVIDED SAFE AND QUIET ENVIRONMENT. REPOSITIONED. NO S/S OF PAIN. WILL CONT. TO MONITOR.
--- NOTE | 2022-05-08 20:08 | NUR ---
RECEIVED REPORT FROM AM SHIFT. PATIENT WAS SEEN AND ASSESSED. PATIENT IS INTUBATED AND SEDATED WITH ETT SIZE 8.0 AND SECURED WITH A BITING BLOCK ANCHOR-FAST 25cm @ TEETH. PATIENT IS ON VENTILATOR SUPPORT. VENT SETTINGS: AC/PRVC RR 22, TARGETED VT 500, PEEP 5, FiO2 60% WITH SPO2 OF 98%. VENTILATOR PLUGGED IN RED OUTLET. VENTILATOR ALARMS SET APPROPRIATELY AND AUDIBLE TO ENVIRONMENT. AMBU BAG AT BEDSIDE. HEAD OF BED GREATER THAN 30 DEGREES. NOTICED ADEQUATE BILATERAL CHEST RISE AND FALL. PATIENT IS IN NO RESPIRATORY DISTRESS AT THIS TIME. SUCTIONED SCANT WHITE THIN SECRETIONS FROM ETT AND SCANT WHITE THIN ORALLY. ORAL CARE WAS DONE AND PT TOLERATED WELL. BILATERAL BREATH SOUNDS ON AUSCULTATION; UPPER LOBES: CLEAR LOWER LOBES: CLEAR/DIMINISHED PEAK PRESSURE: 30 cmH20 PLATEAU PRESSURE: 22 cmH20 DRIVING PRESSURE: 17 cmH20 WILL CONTINUE TO MONITOR PATIENT.
--- NOTE | 2022-05-08 20:40 | NUR ---
PT. FAMILY CAME TO VISIT AND QUIETLY JUST AT THE BEDSIDE OF THE PT.
[2022-05-08] MEDS: NOREPINEPHRINE 8 MG in DEXTROSE 5% 250 ML IV PRN (23:05)
[2022-05-09] VITALS (32 sets, daily range): BP systolic 101–134; BP diastolic 52–70
--- NOTE | 2022-05-09 03:50 | NUR ---
[facility] CHRIS CUETO CAME AND REQUESTED SOME REPORTS REGARDING MD DOCUMENTATIONS OF PT. CONDITION STATING " BRAIN ". PROVIDED WITH THE COPY AND ALSO SHE REQUESTED FOR APNEA TEST ABG. RT PROVIDED THE RESULTS. CHRIS STATED THAT IF THERE'S ANY CHANGES TO CALL [facility]. WILL ENDORSE TO THE NEXT SHIFT.
[2022-05-09] MEDS: DOPamine 400 MG/D5W PREMIX 250 ML IV PRN (04:18)
--- NOTE | 2022-05-09 04:18 | NUR ---
LAB DRAWN BLOOD FOR CBC AND BMP.
[2022-05-09] MEDS: PIPERACILLIN/TAZOBACTAM 3.375 GM in DEXTROSE 5% 50 ML IV SCH ×3 (05:34→21:17)
[2022-05-09] MEDS: NACL 0.9% 1,000 ML IV SCH ×3 (05:40→21:18)
[2022-05-09 06:06] LABS: ANION GAP 11.7 (8-16); CARBON DIOXIDE 25.5 mmol/L (21-32); CREATININE 2.1 mg/dL (0.6-1.3); POTASSIUM 4.2 mmol/L (3.5-5.1)
[2022-05-09 06:07] LABS: BASOPHILS % (AUTO) 0.2 % (0.0-2.0); EOSINOPHILS % (AUTO) 0.1 % (0.0-4.0); HEMATOCRIT 32.1 % (36-52); HEMOGLOBIN 10.8 g/dL (12.0-18.0); LYMPHOCYTES # (AUTO) 0.2 K/uL (2.0-11.5); MEAN CORPUSCULAR HEMOGLOBIN 29 pg (27-31); MEAN CORPUSCULAR HGB CONC 34 g/dL (33-37); MEAN CORPUSCULAR VOLUME 86.1 fL (80-94); MONOCYTES # (AUTO) 0.6 K/uL (0.8-1.0); MONOCYTES % (AUTO) 10.1 % (1.7-9.3); NEUTROPHILS # (AUTO) 4.8 K/uL (1.8-7.7); NEUTROPHILS % (AUTO) 85.6 % (42.2-75.2); PLATELET COUNT (AUTO) 71 K/uL (140-450); RED BLOOD CELL COUNT(AUTO) 3.73 MIL/uL (4.20-6.10); RED CELL DISTRIBUTION WIDTH 14.7 % (11.6-13.7); WHITE BLOOD COUNT (AUTO) 5.6 K/uL (4.8-10.8)
--- NOTE | 2022-05-09 07:23 | NUR ---
REPORT GIVEN TO DARVIN DYER RN FOR CONTINUITY OF CARE.
--- NOTE | 2022-05-09 07:25 | NUR ---
RECEIVED ON A [employer]APE R860 VENTILATOR PLUGGED INTO RED OUTLET TOLERATING WELL WITHOUT ADVERSE REACTIONS NOTED TO AN ENDOTRACHEAL TUBE #8.0 SECURE AT 25cm TEETH/GUM LINE WITH ANCHOR FAST CUFF PRESSURE CHECKED NOTED AMBU BAG AT BEDSIDE LOC NON REACTIVE EQUAL CHEST RISE ENDOTRACHEAL SUCTION FOR COPIOUS THIN BLAND SECRETIONS AIRWAY PATENT
--- NOTE | 2022-05-09 07:53 | NUR ---
REPORT RECEIVED FROM GALINA BARBOZA. PT STABLE. INFORMED OF SENSITIVE SITUATION REGARDING THE PATIENTS CIRCUMSTANCE AND WILL COLLABORATE WITH MENTAL HEALTH THERAPIST AND MD CHERELLE OBRIEN FAR COMMUNICATION WITH FAMILY REGARDING [facility]
--- NOTE | 2022-05-09 11:04 | NUR ---
NO DISTRESS NOTED EQUAL CHEST RISE ENDOTRACHEAL SUCTION FOR MODERATE THIN BLAND SECRETIONS AIRWAY PATENT
--- NOTE | 2022-05-09 11:27 | NUR ---
DOUGH MOLDER CONTACTED AND SPOKE WITH NEDA ROMO. DOUGH MOLDER NUMBER IS [id number]
--- NOTE | 2022-05-09 13:17 | NUR ---
GOOD CHEST RISE ENDOTRACHEAL SUCTION FOR MODERATE SEMI THICK TO THIN BLAND SECRETIONS AIRWAY PATENT
[2022-05-09] MEDS: VASOPRESSIN 40 UNITS in NACL 0.9% 250 ML IV SCH (13:33)
--- NOTE | 2022-05-09 17:09 | NUR ---
EQUAL CHEST RISE ENDOTRACHEAL SUCTION FOR MODERATE SEMI THICK TO THIN YELLOW SECRETIONS AIRWAY PATENT
--- NOTE | 2022-05-09 19:10 | NUR ---
RECEIVED REPORT FROM AM SHIFT. PATIENT WAS SEEN AND ASSESSED. PATIENT IS INTUBATED WITH ETT SIZE 8.0 AND SECURED WITH A BITING BLOCK ANCHOR-FAST 25cm @ TEETH. PATIENT IS ON VENTILATOR SUPPORT. VENT SETTINGS: AC/PRVC RR 22, TARGETED VT 500, PEEP 5, FiO2 60% WITH SPO2 OF 99%. VENTILATOR PLUGGED IN RED OUTLET. VENTILATOR ALARMS SET APPROPRIATELY AND AUDIBLE TO ENVIRONMENT. AMBU BAG AT BEDSIDE. HEAD OF BED GREATER THAN 30 DEGREES. NOTICED ADEQUATE BILATERAL CHEST RISE AND FALL. PATIENT IS IN NO RESPIRATORY DISTRESS AT THIS TIME. SUCTIONED SMALL WHITE/YELLOW THIN SECRETIONS FROM ETT AND SCANT WHITE THIN ORALLY. ORAL CARE WAS DONE AND PT TOLERATED WELL. BILATERAL BREATH SOUNDS ON AUSCULTATION; UPPER LOBES: CLEAR LOWER LOBES: CRACKLES PEAK PRESSURE: 33 cmH20 PLATEAU PRESSURE: 23 cmH20 DRIVING PRESSURE: 18 cmH20 WILL CONTINUE TO MONITOR PATIENT.
--- NOTE | 2022-05-09 23:32 | NUR ---
SPO2 100%. TITRATED FiO2 FROM 60% TO 50%. PT TOLERATING WELL AT THIS TIME. SPO2 100%. RN NOTIFIED. WILL CONTINUE TO MONITOR PT.
[2022-05-10] VITALS (31 sets, daily range): BP systolic 11–133; BP diastolic 50–71
--- NOTE | 2022-05-10 03:22 | NUR ---
SUCTIONE MODERATE AMOUNT OF YELLOW THICK SECRETIONS FROM ETT. ORAL CARE DONE. SPO2 100%. TITRATED FiO2 FROM 50% TO 40%. PT TOLERATING WELL AT THIS TIME. SPO2 98%. RN NOTIFIED. WILL CONTINUE TO MONITOR PT.
[2022-05-10] MEDS: PIPERACILLIN/TAZOBACTAM 3.375 GM in DEXTROSE 5% 50 ML IV SCH ×3 (05:13→21:32)
[2022-05-10] MEDS: NACL 0.9% 1,000 ML IV SCH ×2 (05:15→13:33)
[2022-05-10 06:04] LABS: BASOPHILS % (AUTO) 0.4 % (0.0-2.0); EOSINOPHILS # (AUTO) 0.1 K/uL (0-0.4); EOSINOPHILS % (AUTO) 1.4 % (0.0-4.0); HEMATOCRIT 27.9 % (36-52); HEMOGLOBIN 9.5 g/dL (12.0-18.0); LYMPHOCYTES # (AUTO) 0.4 K/uL (2.0-11.5); LYMPHOCYTES % (AUTO) 4.7 % (20.5-51.1); MEAN CORPUSCULAR HEMOGLOBIN 29 pg (27-31); MEAN CORPUSCULAR HGB CONC 34 g/dL (33-37); MEAN CORPUSCULAR VOLUME 84.6 fL (80-94); MONOCYTES # (AUTO) 0.6 K/uL (0.8-1.0); MONOCYTES % (AUTO) 8.3 % (1.7-9.3); NEUTROPHILS # (AUTO) 6.4 K/uL (1.8-7.7); NEUTROPHILS % (AUTO) 85.2 % (42.2-75.2); PLATELET COUNT (AUTO) 55 K/uL (140-450); RED BLOOD CELL COUNT(AUTO) 3.29 MIL/uL (4.20-6.10); RED CELL DISTRIBUTION WIDTH 15.1 % (11.6-13.7); WHITE BLOOD COUNT (AUTO) 7.6 K/uL (4.8-10.8)
[2022-05-10 06:35] LABS: ANION GAP 10.4 (8-16); CARBON DIOXIDE 24.7 mmol/L (21-32); CREATININE 2.1 mg/dL (0.6-1.3); POTASSIUM 4.1 mmol/L (3.5-5.1)
--- NOTE | 2022-05-10 19:15 | NUR ---
RECEIVED PATIENT ON BED UNRESPONSIVE TO ANY TACTILE STIMULI; ORALLY INTUBATED AND VENTILATED AT 35% FI02.PUPILS FIXED AND DILATED. CARDIACSCOPE SHOWS ON SINUS RHYTHM HR 81/MIN NO ARRHYTH MIAS SEEN. COMMECING ON IVF NORMAL SALINE AT 50 ML/HR AND ON VASOPRESSIN DRIP AT 0.01 UNITS/MIN VIA CENTRAL LINE TO RIGHT FEMORAL; PATENT AND INTACT. ABDOMEN IS SOFT, NO BOWEL SOUNDS HEARD ON AUSCULTATION. OGT IN PLACE, CLAMPED. KEPT NPO. WITH HILLMAN CATH IN PLACE TO GRAVITY DRAINAGE BAG; ANURIC. WITH PITTING EDEMA NOTED ON ALL EXTREMITIES.
--- NOTE | 2022-05-10 20:30 | NUR ---
WITH FEVER 101.3F; COOLING MEASURES DONE; REFERRED TO DR. WEST WITH ORDER TO GIVE TYLENOL TAB; GIVEN THRU OGT.
[2022-05-10] MEDS ORDERED: ACETAMINOPHEN EXTRA STRENGTH 500 MG TAB NG SCH (21:00)
--- NOTE | 2022-05-10 21:00 | NUR ---
VISITED BY THE FAMILY.
[2022-05-10] MEDS ORDERED: ACETAMINOPHEN EXTRA STRENGTH 500 MG TAB ONE (21:03)
[2022-05-11] VITALS (31 sets, daily range): BP systolic 88–128; BP diastolic 48–84
--- NOTE | 2022-05-11 04:30 | NUR ---
MORNING CARE DONE; SUCTION SECREATIONS THRU ETT, NOTED WITH MODERATE TO LARGE AMOUNT OF SLIGHTLY THICK CREAM COLORED SPUTUM.
[2022-05-11] MEDS: PIPERACILLIN/TAZOBACTAM 3.375 GM in DEXTROSE 5% 50 ML IV SCH ×3 (05:00→21:43)
--- NOTE | 2022-05-11 07:30 | NUR ---
RECEIVED REPORT FROM MAISHA . PT IS TRACH TO VENT, V/S IV FLUID HAS TLC ON RT GROIN INFUSSING NS 50ML/HR AND VASOPRESSIN . THE SITE IS DRY AND CLEAN, GENERAL SKIN EDEMATODES, F/C HAS SCAN AMOUNT URINE.
--- NOTE | 2022-05-11 09:45 | NUR ---
TRANSFER FROM ICU1 TO ICU8 WITH RT TEAM.
--- NOTE | 2022-05-11 11:09 | NUR ---
RN FOLLOWED UP ON PATIENT TRANSFER TO [facility]. RN SPOKE WITH PATRICK AT [facility], PATIENT DECLINED BY HOT MILL WORKER WHO STATES THAT PATIENT DOESN'T NEED HLOC. RN SPOKE WITH EVERARDO AT [facility], STATES THAT REVIEW WILL BE STARTED FOR TRANSFER. RN SPOKE WITH THEO AT [facility], SHE STATES THERE ARE 48 PATIENTS HOLDING IN THE ER FOR ADMISSION, NO ICU BEDS AVAILABLE. RN SPOKE WITH JOANA AT [facility], THEY ARE AT [facility] [address] AND ARE UNABLE TO ACCEPT THE PATIENT. RN SPOKE WITH EMMANUEL AT [facility], NO ICU BEDS, UNABLE TO ACCEPT PATIENT. Addendum: 05/12/22 at 1248 by Rosa Joyce RN RN RN SPOKE WITH YUE AT [facility], UPDATED PROGRESS NOTES FAXED PER HIS REQUEST, CASE STILL UNDER REVIEW. RN SPOKE WITH MARELY AT [facility], NO ICU BEDS OR ACCEPTING MD. RN SPOKE WITH GHASSAN AT [facility], FACILITY AT [facility] [address] AND UNABLE TO ACCEPT PATIENT. RN SPOKE WITH EMMANUEL AT THE [facility] TRANSF[facility], NO BEDS.
[2022-05-11] MEDS: NACL 0.9% 1,000 ML IV SCH (13:30)
--- NOTE | 2022-05-11 16:30 | NUR ---
VISIT BY HARLEY GUADALUPE AT PT BED SIDE
--- NOTE | 2022-05-11 16:45 | NUR ---
REPOSITION V/S WITH IN NORMAL LIMIT. ETT TO VENT SETTING PRVC 30%FIO2 RATE 22 TV 500 PEEP POF 5.
--- NOTE | 2022-05-11 16:47 | NUR ---
PT. VITAL SIGN WNL. WITH IV FLUID NS 50ML/H VASOPRESSIN . GENERALIZE EDETATES. NO BM AT THE TIME HILLMAN CATH DRAIN SCAN AMOUNTOF URINE.
--- NOTE | 2022-05-11 20:16 | NUR ---
FAMILY MEMBER AT BEDSIDE
--- NOTE | 2022-05-11 20:16 | NUR ---
TRANSFER OF CARE FROM DAY SHIFT, REPORT RECEIVED FROM SILVESTRE Fuentes RN. PATIENT IS RECEIVED INTUBATED, SEDATED WITH ETT TO VENT. CURRENT SETTINGS ARE AC/PRVC, FIO2 = 35%, VT = 500, R = 22, PEEP = 5. PATIENT HAS RIGHT FEMORAL TLC, VITALS AT START OF SHIFT = 97.5F, HR =58, R = 22, O2 = 97%, BP =90/53 HAS VASOPRESSIN 40 UNITS INFUSING AT 0.02IU/MIN AND NS @ 50ML/HR. WILL CONTINUE TO MONITOR PATIENT FOR ANY CHANGES IN CONDITION
[2022-05-12] VITALS (28 sets, daily range): BP systolic 89–153; BP diastolic 50–93
--- NOTE | 2022-05-12 00:25 | NUR ---
RECEIVED PHONE CALL FROM [facility], SPOKE WITH TOD. PROVIDED UPDATE ON PATIENT STATUS. ALL QUESTIONS ANSWERED.
[2022-05-12] MEDS: DOPamine 400 MG/D5W PREMIX 250 ML IV PRN ×3 (01:13→22:22)
--- NOTE | 2022-05-12 01:13 | NUR ---
BP NOTED TO BE 86/56. HR = 53 STARTED DOPAMINE @ 5MCG WILL CONTINUE TO MONITOR PATIENT FOR ANY CHANGE IN CONDITION
--- NOTE | 2022-05-12 03:55 | NUR ---
RT AT BEDSIDE, FIO2 TITRATED TO 40%
--- NOTE | 2022-05-12 05:00 | NUR ---
RT AT BEDSIDE, FIO2 TITRATED TO 45%
[2022-05-12] MEDS: PIPERACILLIN/TAZOBACTAM 3.375 GM in DEXTROSE 5% 50 ML IV SCH ×3 (05:42→21:00)
[2022-05-12] MEDS: VASOPRESSIN 40 UNITS in NACL 0.9% 250 ML IV SCH (06:00)
[2022-05-12] MEDS: NACL 0.9% 1,000 ML IV SCH (06:16)
--- NOTE | 2022-05-12 07:10 | NUR ---
TRANSFER OF CARE TO DAY SHIFT, REPORT ENDORSED TO JABARI HEWITT
--- NOTE | 2022-05-12 07:30 | NUR ---
Received report, patient is resting in bed, appears comfortable, tolerating mechanical ventilation at Ac40%// Addendum: 05/12/22 at 1836 by Agency Nurse 15, RN RN 0730 (cont) Patient has ETT 7.5 @ 25cm lip line. SB noted on telemetry, VSS wit Dopamine at 5mcg/kg/min and Vasopressin 0.03unit/min for BP support. Patient remains unarousable to any type of stimuli.. OGT clamped, abdomen firm and absent bowel sounds. Varma to gravity, scant urine output noted. R fem TLC CDI with IVFs infusing without difficulty. No notable skin issues. Will continue to monitor.
--- NOTE | 2022-05-12 08:35 | NUR ---
RECEIVED ON A [employer]APE R860 VENTILATOR PLUGGED INTO RED OUTLET TOLERATING WELL WITHOUT ADVERSE REACTIONS NOTED TO AN ENDOTRACHEAL TUBE #8.0 SECURED AT 25cm TEETH/GUM LINE WITH AN ANCHOR FAST CUFF PRESSURE CHECKED NOTED AMBU BAG AT BEDSIDE EQUAL CHEST RISE NO SPUTUM RETURN WITH SUCTIONING AIRWAY PATENT
--- NOTE | 2022-05-12 11:36 | NUR ---
STABLE GOOD CHEST RISE NO SECRETION RETURN ON SUCTIONING
--- NOTE | 2022-05-12 13:07 | NUR ---
RESTING COMFORTABLY GOOD CHEST RISE NO SECRETIONS RETURN WITH SUCTIONING SATURATION 97% ON FIO2 OF45% PEEP 5cmH2O TITRATED FIO2 TO 40% MARCELINA/ICU ASSOCIATE PROFESSOR COMPUTER SCIENCE NOTIFIED
--- NOTE | 2022-05-12 15:32 | NUR ---
STABLE NO DISTRESS NOTED GOOD CHEST RISE AIRWAY PATENT
--- NOTE | 2022-05-12 19:21 | NUR ---
Patient is resting in bed , no distress. Report given to angela Fitzpatrick RN
--- NOTE | 2022-05-12 19:30 | NUR ---
TRANSFER OF CARE FROM DAY SHIFT, REPORT RECEIVED FROM MARCELINA Charles RN. PATIENT IS RECEIVED INTUBATED, SEDATED WITH ETT TO VENT. CURRENT SETTINGS ARE AC/PRVC, FIO2 = 40%, VT = 500, R = 22, PEEP = 5. PATIENT HAS RIGHT FEMORAL TLC, VITALS AT START OF SHIFT TEMP= 97.4F, HR =65, R = 22, O2 = 95%, BP =107/54. HAS VASOPRESSIN 40 UNITS INFUSING AT 0.03IU/MIN, DOPAMINE 400MG @ 4.99MCG/KG/MIN, AND NS @ 50ML/HR. WILL CONTINUE TO MONITOR PATIENT FOR ANY CHANGES IN CONDITION
--- NOTE | 2022-05-12 19:42 | NUR ---
RT AT BEDSIDE
--- NOTE | 2022-05-12 19:45 | NUR ---
FAMILY (UNCLE) AT BEDSIDE
--- NOTE | 2022-05-12 20:25 | NUR ---
FAMILY (MOTHER AND UNCLE) AT BEDSIDE Addendum: 05/12/22 at 2325 by Nanette Smith RN PATIENT BELONGINGS (BAG WITH SHOES, WALLET, AND KEYS) GIVEN TO UNCLE AND MOTHER
[2022-05-13] VITALS (30 sets, daily range): BP systolic 109–142; BP diastolic 50–82
--- NOTE | 2022-05-13 01:20 | NUR ---
RT AT BEDSIDE, FIO2 TITRATED TO 50%
[2022-05-13] MEDS: NACL 0.9% 1,000 ML IV SCH ×2 (02:16→16:00)
--- NOTE | 2022-05-13 04:17 | NUR ---
RECEIVED PHONE CALL FROM [facility], SPOKE WITH TOD. PROVIDED UPDATE ON PATIENT STATUS. ALL QUESTIONS ANSWERED.
[2022-05-13] MEDS: VASOPRESSIN 40 UNITS in NACL 0.9% 250 ML IV SCH (04:40)
--- NOTE | 2022-05-13 07:00 | NUR ---
Received bedside report from JABARI Fitzpatrick. Patient is stable at this time. Will continue to monitor.
--- NOTE | 2022-05-13 07:02 | NUR ---
RECEIVED ON A [employer]APE R860 VENTILATOR PLUGGED INTO RED OUTLET TOLERATING WELL WITHOUT COMPLICATIONS NOTED TO AN ENDOTRACHEAL TUBE #8.0 SECURED AT 25cm TEETH/GUM LINE WITH AN ANCHOR FAST CUFF PRESSURE CHECKED NOTED AMBU BAG AT BEDSIDE LOC NON RESPONSIVE EQUAL CHEST RISE DIFFUSED RALES BILATERAL ENDOTRACHEAL SUCTION FOR SMALL THIN YELLOW WITH BLOOD TINGE SECRETIONS AIRWAY PATENT SATURATION 97% ON FIO2 OF 50% PEEP 5cmH20 TITRATED FIO2 TO 45% NOTIFIED NOC RN
--- NOTE | 2022-05-13 07:08 | NUR ---
RT AT BEDSIDE, FIO2 TITRATED TO 45%
--- NOTE | 2022-05-13 07:15 | NUR ---
TRANSFER OF CARE TO DAY SHIFT, REPORT ENDORSED TO ARLENE Driver RN.
[2022-05-13] MEDS: DOPamine 400 MG/D5W PREMIX 250 ML IV PRN ×2 (10:38→23:37)
--- NOTE | 2022-05-13 11:30 | NUR ---
NO DISTRESS NOTED GOOD CHEST RISE ENDOTRACHEAL SUCTION FOR LARGE SEMI THICK YELLOW SECRETIONS AIRWAY PATENT
--- NOTE | 2022-05-13 11:40 | NUR ---
Brother Ismael visited pt. No questions at this time.
--- NOTE | 2022-05-13 12:00 | NUR ---
WOUND CARE RE-EVAL: LOW GHAZAL SCORE, NO NEW WOUNDS/LESIONS/ECCHYMOSIS. CONTINUE CURRENT WOUND CARE PREVENTATIVE MEASURES.
--- NOTE | 2022-05-13 15:36 | NUR ---
STABLE EQUAL CHEST RISE AIRWAY PATENT ENDOTRACHEAL SUCTIONING NOT REQUIRED AT THIS TIME
--- NOTE | 2022-05-13 17:02 | NUR ---
Transfer center at [facility] called and stated cannot accept the patient and declined the transfer. ICU director was made aware. outside sales manager made aware.
--- NOTE | 2022-05-13 18:14 | NUR ---
made aware of US of bladder and kidneys. F/c removed and reinserted using sterile technique. 1800cc of dark nicola colored urine drained. Will continue to monitor.
--- NOTE | 2022-05-13 19:00 | NUR ---
Bedside report given to JABARI Holcomb.
--- NOTE | 2022-05-13 20:00 | NUR ---
RECEIVED PT ON BED - INTUBATED, TOLERATING CURRENT VENT SETTING, OGT IN PLACE, TEMP 96,1. nO REFLEXES, PUPIL FIXED AND DILATED. ON VASOPRESSING AND DOPAMINE DRIPS VIA 3 LUMEN CENTRAL LINE RIGHT GROIN. ASSESSMENT DONE. REPOSITIONED COMFORTABLY, SUPPORTED WITH PILLOWS. SR. CONT TO MONITOR
[2022-05-14] VITALS (26 sets, daily range): BP systolic 91–153; BP diastolic 42–96
[2022-05-14] MEDS: NACL 0.9% 1,000 ML IV SCH (06:02)
--- NOTE | 2022-05-14 07:30 | NUR ---
REPORT GIVEN TO INCOMING AM NURSE.
--- NOTE | 2022-05-14 07:30 | NUR ---
Received report, patient lying in bed, tolerating mechanical ventilation well. AM Temp 84.3 via temporal scan, Ernesto hugger and blanket applied. SB noted on telemetry with Vasopressin and Dopamine infusing for BP and HR support. No acute distress noted. Will continue to monitor patient.
[2022-05-14] MEDS: DOPamine 400 MG/D5W PREMIX 250 ML IV PRN ×3 (08:14→18:37)
[2022-05-14] MEDS: VASOPRESSIN 40 UNITS in NACL 0.9% 250 ML IV SCH (08:16)
--- NOTE | 2022-05-14 10:08 | NUR ---
FIO2 INCREASED TO 55% DUE TO LOW SPO2 ON MONITOR OF 86%. PT SUCTIONED OBTAINED LARGE AMOUNT OF THICK YELLOW SECRETIONS, AIRWAY IS PATENT AND ETT IS SECURE. NO GAG REFLEX PRESENT DURING SUCTIONING. NURSE AWARE.
[2022-05-14 11:02] LABS: BASOPHILS % (AUTO) 0.2 % (0.0-2.0); EOSINOPHILS # (AUTO) 0.1 K/uL (0-0.4); HEMATOCRIT 33.8 % (36-52); HEMOGLOBIN 10.9 g/dL (12.0-18.0); LYMPHOCYTES # (AUTO) 0.5 K/uL (2.0-11.5); LYMPHOCYTES % (AUTO) 3.7 % (20.5-51.1); MEAN CORPUSCULAR HEMOGLOBIN 28 pg (27-31); MEAN CORPUSCULAR HGB CONC 32 g/dL (33-37); MONOCYTES # (AUTO) 0.3 K/uL (0.8-1.0); MONOCYTES % (AUTO) 2.3 % (1.7-9.3); NEUTROPHILS # (AUTO) 11.6 K/uL (1.8-7.7); NEUTROPHILS % (AUTO) 92.8 % (42.2-75.2); PLATELET COUNT (AUTO) 111 K/uL (140-450); RED BLOOD CELL COUNT(AUTO) 3.89 MIL/uL (4.20-6.10); RED CELL DISTRIBUTION WIDTH 16.8 % (11.6-13.7); WHITE BLOOD COUNT (AUTO) 12.4 K/uL (4.8-10.8)
[2022-05-14 11:19] LABS: ANION GAP 16.2 (8-16); CARBON DIOXIDE 19.9 mmol/L (21-32); POTASSIUM 4.1 mmol/L (3.5-5.1)
[2022-05-14 11:25] LABS: CREATININE 4.9 mg/dL (0.6-1.3)
--- NOTE | 2022-05-14 11:47 | NUR ---
Received call from Lab, patient has BUN 140 and Creatinine 4.9, message sent to Dr Kennedy, new order received to consult Dr Goff.
--- NOTE | 2022-05-14 19:10 | NUR ---
Patient is resting in bed, no apparent distress noted, tolerating mechanical ventilation well. Dopamine at 12mcg/kg/min for HR/ BP support. Report given to oncoming nurseAicha.
--- NOTE | 2022-05-14 20:00 | NUR ---
RECEIVED ON BED ORALLY INTUBATED, ON DOPAMINE DRIP AT 12 MCG/KG/MIN. OGT IN PLACE, PLACEMENT VERIFIED. F/C DRAINING MOD AMOUNT OF YELLOW URINE. ASSESSMENT DONE. REPOSITIONED TO SIDE, SUPPORTED WITH PILLOWS. IVF INFUSING WELL VIA 3 LUMEN CENTRAL LINE RIGHT INGUINAL AREA. MADE WARM AND COMFORTABLE. CALL LIGHT WITHIN REACH. SR PER MONITOR. MARLO HUGGER ON.
[2022-05-15] VITALS (16 sets, daily range): BP systolic 96–106; BP diastolic 37–49
[2022-05-15] MEDS: DOPamine 400 MG/D5W PREMIX 250 ML IV PRN ×4 (01:29→15:09)
--- NOTE | 2022-05-15 07:30 | NUR ---
Received report from off going nurse. Patient is resting in bed, tolerating mechanical ventilation well, AC 100%/ 500/ 22/ +5 PEEP. SR noted on telemetry with Dopamine at 14mcg/kg/min for HR/ BP support. No apparent distress noted, will continue to monitor patient.
[2022-05-15] MEDS: NACL 0.9% 1,000 ML IV SCH (15:06)
--- NOTE | 2022-05-15 17:45 | NUR ---
PT EXTUBATED PER MD ORDER AND FAMILY REQUEST. FAMILY MEMBERS BEDSIDE ALONG WITH MANAGER REIMBURSEMENT AND NURSE.
--- NOTE | 2022-05-15 18:20 | NUR ---
1730 Received notice from Alison, protection manager, family is ready to proceed with extubation. Spoke with Dr Mata, aware and acknowledged family wishes, order placed. 1745 Patient is extubated to nasal cannula as requested per family, Vasopressin and Dopamine discontinued, RT and LOG YARD DERRICK OPERATOR present at bedside along with family members. 1750 There in no organized rate or rhythm noted on telemetry, auscultation of chest reveals not audible heart or breath tones noted. 1755 Family made aware of this condition, wishes not to return to bedside. Administrative rep notified. Post mortem care completed.
--- NOTE | 2022-05-15 19:00 | NUR ---
1840 Calls placed to [facility] and [facility] office, reported. 185 Renata Dumas (special equipment technician) called back, patient is [facility] case (#[id number]), awaiting transport.
--- NOTE | 2022-05-15 20:37 | NUR ---
RECEIVED A CALL FROM BETHEL FROM [facility] SAYING "OK TO RELEASE BODY , NOT A CANDIDATE FOR ORGAN DONATION."
--- NOTE | 2022-05-15 21:00 | NUR ---
BODY PICKED UP BY [facility] OFFICE. BELONGINGS RETURNED TO FAMILY.
== END 2022-05-15 17:50 | DRG 130 ==
LOC: MED 01:47 → MMU 04:50 → MIC 05-06 08:13
PROVIDERS: ADMIT Family Medicine; ATTEND Family Medicine
PROC: 5A12012 Performance of Cardiac Output, Single, Manual (ICD-10-PCS; principal; 2022-05-05)
PROC: 5A1955Z Respiratory Ventilation, Greater than 96 Consecutive Hours (ICD-10-PCS; 2022-05-05)
PROC: 0BH17EZ Insertion of Endotracheal Airway into Trachea, Via Natural or Artificial Opening (ICD-10-PCS; 2022-05-05)
PROC: 06HY33Z Insertion of Infusion Device into Lower Vein, Percutaneous Approach (ICD-10-PCS; 2022-05-05)
PROC: 0T9B70Z Drainage of Bladder with Drainage Device, Via Natural or Artificial Opening (ICD-10-PCS; 2022-05-05)
PROC: 4A10X4Z Monitoring of Central Nervous Electrical Activity, External Approach (ICD-10-PCS; 2022-05-06)
PROC: 0T2BX0Z Change Drainage Device in Bladder, External Approach (ICD-10-PCS; 2022-05-10)
DX: J96.01 Acute respiratory failure with hypoxia (principal); I46.9 Cardiac arrest, cause unspecified; N17.9 Acute kidney failure, unspecified; E44.1 Mild protein-calorie malnutrition; E87.1 Hypo-osmolality and hyponatremia; Z68.34 Body mass index [BMI] 34.0-34.9, adult; R73.9 Hyperglycemia, unspecified; F15.10 Other stimulant abuse, uncomplicated; Z20.822 Contact with and (suspected) exposure to COVID-19; E87.20 Acidosis, unspecified; R57.9 Shock, unspecified
CPT/HCPCS: 31500; 36415; 36556; 36600; 70450; 71045; 72125; 76770; 78606; 80048; 80053; 80305; 81001; 82803; 83036; 83605; 83735; 84484; 85025; 85610; 85730; 87081; 92950; 94002; 94003; 94664; 95824; 96365; 96366; 99291; G0480; G0482; J1265; J1644; J2543; J3490; J7030; J7060; Q0092; Q9967